=== PATIENT | female | born 1980 | race Caucasian/White ===

== ENCOUNTER 2020-01-30 12:50 | Emergency (ER) | payer OTHER, MEDICAID, SELFPAY ==
--- NOTE | ~2020-01-30 | XR_ITS ---
EXAMINATION: XR shoulder RT min 2V DATE: 01/30/2020 13:53 INDICATION: Right shoulder pain 3 days post injury after being pulled by a dog. TECHNIQUE: AP and transscapular Y views of the right shoulder were obtained. COMPARISON: None FINDINGS: Normal alignment. No fracture. Glenohumeral joint is normal. Acromioclavicular joint is normal. Soft tissues are unremarkable. Right lung is clear. IMPRESSION: Negative right shoulder radiographs. Reviewed, dictated and finalized at location A.
--- NOTE | ~2020-01-30 | XR_ITS ---
EXAMINATION:XR cervical spine 4-5V DATE: 01/30/2020 13:53 INDICATION: Posterior right shoulder pain and right neck pain after being pulled by a dog. TECHNIQUE: AP, lateral, lateral swimmers and odontoid views of the cervical spine are provided. COMPARISON: CT dated 01/31/2010 FINDINGS: Unchanged mild upper thoracic levocurvature. Cervical alignment is normal. Odontoid is intact. Nneka l atlantoaxial interval. Vertebral body heights are normal. Disc spaces are normal. Multilevel mild b ilateral cervical facet osteoarthritis. Prevertebral soft tissues are normal. Visualized apices of th e lungs are clear. IMPRESSION: 1. Multilevel mild cervical facet osteoarthritis. No acute osseous abnormality. Reviewed, dictated and finalized at location A.
[2020-01-30 13:06] VITALS: BP 145/94; PULSE 80; RESP 16; TEMP 36.7; O2SAT 100
--- NOTE | 2020-01-30 13:10 | ED.UPPEXIN ---
HPI - Extremity Injury (Upper) General Chief Complaint: Extremity Injury, Upper Stated Complaint: right shoulder/arm pain/burning sensation Time Seen by Provider: 01/30/20 13:20 Source: patient and RN notes reviewed Mode of arrival: ambulatory Limitations: no limitations History of Present Illness HPI narrative: 39-year-old female presents with concern for right shoulder, arm, neck pain. Reports on Tuesday she fell on steps onto her right side. She denies head injury. She reports a tingling sensation down her arm and occasional shooting pain. She denies decreased range of motion, weakness. complaint: injury to: right, shoulder and arm Related Data Home Medications Medication Instructions Recorded Confirmed Nexplanon 01/30/20 Allergies Allergy/AdvReac Type Severity Reaction Status Date / Time No Known Allergies Allergy Verified 05/07/19 17:49 Review of Systems Review of Systems: Narrative: CONSTITUTIONAL: Denies malaise, chills, sweats, or fever. EYES: Denies visual changes CARDIOVASCULAR: Denies chest pain, palpitations, or edema. RESPIRATORY: Denies cough or dyspnea. SKIN: Denies bruising, redness, lacerations, abrasions MUSCULOSKELETAL: Reports right shoulder, neck pain, right arm pain NEUROLOGIC: Denies numbness, weakness. All systems reviewed & are unremarkable except as noted in HPI and below PMFSH Comments At time of signature, agree with nursing past medical, surgical, social and family history. There is no relevant family history pertinent to the presenting complaint Exam Narrative: Exam Narrative: GENERAL: Well-appearing, well-nourished, and in no acute distress. HEAD: Normocephalic, atraumatic. EYES: PERRLA and EOMI. NECK: Supple. No lymphadenopathy. CHEST: Clear to auscultation. No respiratory distress. HEART: Regular rate and rhythm. Distal pulses palpable and equal, cap refill <3 seconds MUSCULOSKELETAL: Normal range of motion and strength in all extremities; 5/5 strength with hip flexion and extension, dorsiflexion and extension, knee flexion and extension. Normal sensation in dermatomal distributions with sensitivity to light touch and pain. No midline neck tenderness to palpation. Transfers from lying to sitting to standing. SKIN: Warm, dry, no rash. No ecchymosis, erythema, open wounds to back. NEURO: No focal deficits. Alert and oriented x3. Reflexes intact. Normal gait. PSYCH: Normal mood and affect Course Course Emergency Course: Patient is aware of diagnosis, understands and agrees to treatment plan. Anticipatory guidance given. Patient agrees to follow-up as directed and is aware of reasons to seek care at the emergency department. Portions of this record may have been created with voice recognition software Vital Signs Vital signs: Vital Signs Temperature 98.1 F 01/30/20 13:06 Pulse Rate 80 01/30/20 13:06 Respiratory Rate 16 01/30/20 13:06 Blood Pressure 145/94 H 01/30/20 13:06 Pulse Oximetry 100 01/30/20 13:06 Temperature 98.1 F 01/30/20 13:06 Pulse Rate 80 01/30/20 13:06 Respiratory Rate 16 01/30/20 13:06 Blood Pressure 145/94 H 01/30/20 13:06 Pulse Oximetry 100 01/30/20 13:06 Reviewed. MDM - Extremity Injury (Upper) MDM Narrative Medical decision making narrative: Patients injury and pain is consistent with musculoskeletal etiology. No signs of neurological or vascular compromise on exam. Compartments and tissues are soft without signs of compartment syndrome. Pain is felt appropriate for further evaluation on an outpatient basis. Imaging Data Radiologist's impression: EXAMINATION:XR cervical spine 4-5V DATE: 01/30/2020 13:53 INDICATION: Posterior right shoulder pain and right neck pain after being pulled by a dog. TECHNIQUE: AP, lateral, lateral swimmers and odontoid views of the cervical spine are provided. COMPARISON: CT dated 01/31/2010 FINDINGS: Unchanged mild upper thoracic levocurvature. Cervical alignment is normal. Verner
== END 2020-01-30 14:11 | disposition home or self-care (01) ==
PROVIDERS: Emergency Provider Nurse Practitioner
DX: S19.9XXA Unspecified injury of neck, initial encounter (principal); S49.91XA Unspecified injury of right shoulder and upper arm, initial encounter; M47.812 Spondylosis without myelopathy or radiculopathy, cervical region; W10.9XXA Fall (on) (from) unspecified stairs and steps, initial encounter
CPT/HCPCS: 72050; 73030; 99213; G0463

== ENCOUNTER 2021-04-10 16:47 | Emergency (ER) | payer OTHER, MEDICAID, SELFPAY ==
[2021-04-10 17:00] VITALS: BP 137/79; PULSE 84; RESP 18; TEMP 36.4; O2SAT 100
--- NOTE | 2021-04-10 17:36 | ED.SKABFB ---
HPI - Skin/Abscess/Foreign Bdy General Chief complaint: Skin/Abscess/Foreign Body Stated complaint: Rash on Leg Time Seen by Provider: 04/10/21 17:28 Source: patient and RN notes reviewed Mode of arrival: ambulatory Limitations: no limitations History of Present Illness HPI narrative: Patient presents today complaining of a rash to her bilateral upper thighs. Started on the right upper thigh 2 weeks ago and has spread to the left side. States it is severely pruritic. Reports it started after she slept and someone else's camper. Reports her daughters also slept in there with her, but have no rash. She has not changed any household products. She has been using Benadryl, cortisone, and calamine lotion without relief. MD complaint: rash Related Data Home Medications Medication Instructions Recorded Confirmed Nexplanon 01/30/20 Allergies Allergy/AdvReac Type Severity Reaction Status Date / Time No Known Allergies Allergy Verified 05/07/19 17:49 Review of Systems Review of Systems: Narrative: CONSTITUTIONAL: Denies body aches, fever, chills, or sweats. EYES: Denies visual changes, redness, or discharge. ENT: Denies rhinorrhea, congestion, sore throat, or otalgia. CARDIOVASCULAR: Denies chest pain, palpitations, or edema. RESPIRATORY: Denies cough or dyspnea. GASTROINTESTINAL: Denies abdominal pain, nausea, vomiting, or diarrhea. GENITOURINARY: Denies dysuria or hematuria. SKIN: Denies wounds. + Rash MUSCULOSKELETAL: Denies back pain, joint pain, or myalgia. NEUROLOGIC: Denies headache, numbness, tingling, or weakness. PSYCH: Denies depression or anxiety. PMFSH Comments At time of signature, I have reviewed and agree with nursing past medical, surgical, social and family history unless otherwise noted. Please see nursing chart for further information. There is no relevant family history pertinent to the presenting complaint Exam Narrative: Exam Narrative: GENERAL: Well-appearing, well-nourished, and in no acute distress. HEAD: Normocephalic, atraumatic. EYES: EOMI. No redness or drainage. Conjunctivae normal. ENT: Mucous membranes pink and moist. NECK: Normal AROM. CHEST: No respiratory distress. EXTREMITIES: Normal range of motion. No edema. SKIN: Warm, dry. Capillary refill normal. Normal skin turgor. Erythematous macular rash covering most of the anterolateral portion of the bilateral thighs. Patient has caused bruising due to her scratching bilaterally. No open wounds, vesicles, induration, pustules, drainage. No signs of bacterial infection. NEURO: No focal deficits. Alert and oriented x3. Gait steady. PSYCH: Normal affect. No signs of depression or anxiety. Course Vital Signs Vital signs: Vital Signs Temperature 97.6 F 04/10/21 17:00 Pulse Rate 84 04/10/21 17:00 Respiratory Rate 18 04/10/21 17:00 Blood Pressure 137/79 04/10/21 17:00 Pulse Oximetry 100 04/10/21 17:00 Temperature 97.6 F 04/10/21 17:00 Pulse Rate 84 04/10/21 17:00 Respiratory Rate 18 04/10/21 17:00 Blood Pressure 137/79 04/10/21 17:00 Pulse Oximetry 100 04/10/21 17:00 Reviewed. Pt has been instructed to follow up with her PCP regarding her elevated blood pressure today. MDM - Skin/Abscess/Foreign Bdy Differential Diagnosis Differential diagnosis: Likely abscess of skin or subcutaneous tissue, viral exanthem, urticaria, allergic reaction to drug, cellulitis, eczema, impetigo and contact dermatitis Critical Care Time Critical Care Time Critical Care Time: No Discharge Plan Discharge Clinical Impression: Dermatitis Patient Disposition: Home, Self-Care Condition: Stable Instructions: Dermatitis (ED) Additional Instructions: Please take the prednisone as prescribed until gone, starting tomorrow. Continue Benadryl or another antihistamine for itching. Follow-up with your PCP next week if symptoms are not improving. Your blood pressure was elevated above 120/80 today at
== END 2021-04-10 17:44 | disposition home or self-care (01) ==
PROVIDERS: Emergency Provider Nurse Practitioner
DX: L30.9 Dermatitis, unspecified (principal)
CPT/HCPCS: 99213; G0463

== ENCOUNTER 2022-03-05 16:39 | Emergency (ER) | payer OTHER, SELFPAY ==
--- NOTE | ~2022-03-05 | XR_ITS ---
XR wrist RT min 3V 03/05/2022 17:39 INDICATION: Right wrist pain PROCEDURE: 4 views right wrist COMPARISON: 12/23/2010 FINDINGS: Fracture, dislocation or subluxation is not identified. The soft tissues appear within norm al limits. No foreign bodies are identified. IMPRESSION: 1: NO ACUTE BONE OR JOINT ABNORMALITY IDENTIFIED. Reviewed, dictated and finalized at location A.
[2022-03-05 16:42] VITALS: BP 155/81; PULSE 74; RESP 18; TEMP 35.7; O2SAT 100
--- NOTE | 2022-03-05 17:53 | ED.UPPEXIN ---
HPI - Extremity Injury (Upper) General Chief Complaint: Extremity Injury, Upper Stated Complaint: Right Wrist Injury Time Seen by Provider: 03/05/22 17:39 Source: patient Mode of arrival: ambulatory Limitations: no limitations History of Present Illness HPI narrative: This is a 42 year old female that presents to the ER for right wrist pain after an injury a week ago. Reports a box fell on her wrist. It has been sore ever since, especially with movement. She has taking ibuprofen for pain. Denies decreased range of motion or numbness. Related Data Home Medications Medication Instructions Recorded Confirmed Nexplanon 01/30/20 Allergies Allergy/AdvReac Type Severity Reaction Status Date / Time No Known Allergies Allergy Verified 05/07/19 17:49 Review of Systems Review of Systems: CONSTITUTIONAL: Denies fever MUSCULOSKELETAL: Reports joint pain, and myalgia. NEUROLOGIC: Denies numbness, or weakness. All systems reviewed & are unremarkable except as noted in HPI and below PMFSH Past Medical History Medical History (Updated 03/05/22 @ 18:51 by Trena Amador PA-C) No active medical problems Social History Social History (Updated 03/05/22 @ 17:56 by Trena Amador PA-C) Smoking status: Never smoker Exam Narrative: GENERAL: Well-appearing, well-nourished, and in no acute distress. HEAD: Normocephalic, atraumatic. EYES: EOMI. EXTREMITIES: Normal range of motion. No edema or obvious deformity. Normal radial pulses. Normal sensation SKIN: Warm, dry, no rash. NEURO: No focal deficits. Alert and oriented x3. PSYCH: Normal mood and affect Course Vital Signs Vital signs: Vital Signs Temperature 96.2 F L 03/05/22 16:42 Pulse Rate 74 03/05/22 16:42 Respiratory Rate 18 03/05/22 16:42 Blood Pressure 155/81 H 03/05/22 16:42 Pulse Oximetry 100 03/05/22 16:42 Oxygen Delivery Room Air 03/05/22 16:42 Temperature 96.2 F L 03/05/22 16:42 Pulse Rate 74 03/05/22 16:42 Respiratory Rate 18 03/05/22 16:42 Blood Pressure 155/81 H 03/05/22 16:42 Pulse Oximetry 100 03/05/22 16:42 Oxygen Delivery Room Air 03/05/22 16:42 MDM - Extremity Injury (Upper) MDM Narrative Medical decision making narrative: Patient presents to the ER for right wrist pain after an injury one week ago. Right wrist x-ray without acute osseous abnormalities. Patient was updated on case findings. Instructed to rest, ice and take [id number] pain medication as needed. She is to follow-up with primary care doctor. She was given warnings to return to the ER Imaging Data Radiologist's impression: ITS Impressions Wrist X-Ray 03/05/22 17:44 IMPRESSION: 1: NO ACUTE BONE OR JOINT ABNORMALITY IDENTIFIED. Critical Care Time Critical Care Time Critical Care Time: No Discharge Plan Discharge Clinical Impression: Acute pain of right wrist Patient Disposition: Home, Self-Care Condition: Stable Instructions: Wrist Injury (ED) Additional Instructions: Return to the emergency department if you experience fever, redness and swelling of your wrist, numbness, or any other symptoms that are concerning to you Rest. Elevate. Ice to the area. Tylenol or ibuprofen as needed for pain Follow-up with your primary care doctor Prescriptions: No Action Nexplanon prednisone 50 mg tablet 50 mg PO DAILY 5 Days Qty: 5 0RF Follow-up/Referrals: Girma Florence MD [Physician] - PHYSICIAN,[employer] [Primary Care Provider] -
[2022-03-05 19:22] VITALS: BP 137/85; PULSE 80; RESP 18; O2SAT 100
== END 2022-03-05 19:23 | disposition home or self-care (01) ==
PROVIDERS: Emergency Provider Emergency Medicine
DX: M25.531 Pain in right wrist (principal)
CPT/HCPCS: 73110; 99283